=== PATIENT | male | born 1985 | race Caucasian/White ===

== ENCOUNTER 2018-05-03 00:20 | Emergency (ER) | payer SELFPAY ==
[2018-05-03 00:55] VITALS: RESP 16; TEMP 98; O2SAT 98
[2018-05-03] MEDS ORDERED: Naproxen 500 MG TAB PO ONE (01:46)
--- NOTE | 2018-05-03 01:49 | ED PDOC ---
HPI: CCC, URI, Sore Throat Time Seen by Provider: 05/03/18 01:30 Chief Complaint (Nursing): ENT Problem Chief Complaint (Provider): right ear pain History Per: Patient History/Exam Limitations: no limitations Onset/Duration Of Symptoms: Days (10) Current Symptoms Are (Timing): Still Present Additional Complaint(s): 32 y/o male presents for evaluation of right ear pain x 8-10 days. Denies fever , nasal congestion/discharge, cough, drainage from ear. Tylenol taken with little relief of pain. Past Medical History Reviewed: Historical Data, Nursing Documentation, Vital Signs Vital Signs: Last Vital Signs Temp 98.0 F 05/03/18 00:53 Pulse 76 05/03/18 00:53 Resp 16 05/03/18 00:53 BP 163/90 H 05/03/18 00:53 Pulse Ox 98 05/03/18 00:53 - Medical History PMH: Diabetes - Surgical History Surgical History: No Surg Hx - Family History Family History: States: No Known Family Hx - Living Arrangements Living Arrangements: Alone - Home Medications Home Medications: Ambulatory Orders Medication Instructions Recorded Amoxicillin 875 mg PO Q12 #14 tablet 05/03/18 Ciprofloxacin/Dexamethasone 4 drop AD BID #1 bottle 05/03/18 [Ciprodex 0.3%-0.1% 7.5 Ml] - Allergies Allergies/Adverse Reactions: Allergies Allergy/AdvReac Type Severity Reaction Status Date / Time No Known Allergies Allergy Verified 05/03/18 00:55 Review of Systems ROS Statement: Except As Marked, All Systems Reviewed And Found Negative ENT: Positive for: Ear Pain (right) Physical Exam - Reviewed Nursing Documentation Reviewed: Yes Vital Signs Reviewed: Yes - Physical Exam Appears: Positive for: Well, Non-toxic, No Acute Distress Head Exam: Positive for: ATRAUMATIC, NORMAL INSPECTION, NORMOCEPHALIC ENT: Positive for: TM Is/Are (Dull right TM, -light reflex. Edematous right EAC with tenderness upon speculum insertion. Tenderness upon palpation of right tragus. Left TM clear. Left EAC clear. No mastoid swelling/erythema/ tenderness bilaterally) Cardiovascular/Chest: Positive for: Regular Rate, Rhythm Respiratory: Positive for: Normal Breath Sounds Extremity: Positive for: Normal ROM Neurologic/Psych: Positive for: Alert, Oriented - ECG O2 Sat by Pulse Oximetry: 98 - Progress ED Course And Treament: Patient educated on findings, discharged with rx Amoxicillin, Ciprodex Advised follow up PMD 2-3 days Return precautions given Disposition - Clinical Impression Clinical Impression: Right otitis externa, Right otitis media - Patient ED Disposition Is Patient to be Admitted: No Counseled Patient/Family Regarding: Diagnosis, Need For Followup, Rx Given - Disposition Referrals: [facility] [Outside] Christ Murray MD [Staff Provider] - Disposition: Routine/Home Disposition Time: 01:53 Condition: IMPROVED Prescriptions: Amoxicillin 875 mg PO Q12 #14 tablet Ciprofloxacin/Dexamethasone [Ciprodex 0.3%-0.1% 7.5 Ml] 4 drop AD BID #1 bottle Instructions: Ear Infections (Otitis Media), Outer Ear Infection
[2018-05-03 02:01] VITALS: BP 147/91; PULSE 72
== END 2018-05-03 02:01 | disposition home or self-care (01) ==
LOC: H.ER 00:20
DX: H60.91 Unspecified otitis externa, right ear (principal); H66.91 Otitis media, unspecified, right ear